=== PATIENT | female | born 1990 | race Caucasian/White ===

== ENCOUNTER 2020-08-20 10:00 | Inpatient (IN) ==
[2020-08-20] MEDS ORDERED: Metoclopramide 10 MG/2 ML VIAL IVP PRN (10:33)
[2020-08-20] MEDS ORDERED: Ondansetron 4 MG/2 ML VIAL IVP PRN ×2 (10:33→12:01)
[2020-08-20] MEDS ORDERED: Famotidine 20 MG/2 ML VIAL IVP PRN (10:33)
[2020-08-20] MEDS ORDERED: *HR* FentaNYL (PF) 100 MCG/2 ML VIAL IVP PRN (10:33)
[2020-08-20] MEDS ORDERED: Azithromycin 500 MG in 0.9 % Sodium Chloride 250 ML IVPB PRN (10:33)
[2020-08-20] MEDS ORDERED: Naloxone 0.4 MG/ML INJ IVP PRN (10:33)
[2020-08-20] MEDS ORDERED: Oxytocin 20 units/ LR 1000 mL 20 UNIT/1,000 ML BAG IVC SCH ×2 (10:45→21:41)
[2020-08-20 11:04] LABS: Basophils % 0.3 %; Eosinophils # 0.1 K/mcL (0.0-0.6); Eosinophils % 1.1 %; Hematocrit 37.7 % (35.3-44.9); Hemoglobin 12.2 g/dL (11.5-15.4); Immature Granulocytes % 1.8 % (0-4); Lymphocytes % 15.3 %; Mean Corpuscular HGB Conc 32.4 g/dL (31.6-35.5); Mean Corpuscular Hemoglobin 31.4 pg (28.0-33.3); Mean Corpuscular Volume 96.9 fL (83.0-100.0); Mean Platelet Volume 11.1 fL (9.4-12.4); Monocytes # 0.7 K/mcL (0.0-1.3); Monocytes % 5.3 %; Neutrophils # 9.8 K/mcL (1.6-8.9); Platelet Count 321 K/mcL (140-400); Red Blood Count 3.89 M/mcL (3.82-4.97); Red Cell Distribution Width 13.2 % (11.5-14.5); Segmented Neutrophils % 76.2 %; White Blood Count 12.9 K/mcL (4.3-11.1)
[2020-08-20] MEDS: Ringers Solution, Lactated 1,000 ML IVC SCH ×2 (11:11→15:41)
[2020-08-20 11:18] LABS: Amphetamine Screen,Urine Negative ng/mL (Cutoff=1000); Barbiturate Screen,Urine Negative ng/mL (Cutoff=200); Benzodiazepines Screen,Urine Negative ng/mL (Cutoff=200); Cannabinoid Screen,Urine Positive ng/mL (Cutoff = 50); Cocaine Screen,Urine Negative ng/mL (Cutoff= 300); Opiate Screen,Urine Negative ng/mL (Cutoff=300); Phencyclidine Screen,Urine Negative ng/mL (Cutoff=25)
[2020-08-20] MEDS ORDERED: EPHEDrine 50 MG/ML VIAL IVP PRN (12:01)
[2020-08-20] MEDS ORDERED: *HR* FentaNYL (PF) 100 MCG/2 ML VIAL EP ONE (12:01)
[2020-08-20] MEDS ORDERED: Ropivacaine/PF 0.2% 20 ML VIAL EP ONE (12:01)
[2020-08-20] MEDS ORDERED: Epidural Premix (fent/bupiv) 110 ML EP SCH (12:15)
[2020-08-20] MEDS ORDERED: Measles/Mumps/Rubella Vacc 0.5 ML VIAL SQ PRN (21:41)
[2020-08-20] MEDS: Ibuprofen 600 MG TABLET PO PRN (22:22)
[2020-08-20] MEDS: Gabapentin 300 MG CAPSULE PO SCH (23:13)
[2020-08-20] MEDS: *HR* Buprenorphine HCl 8 MG TAB.SUBL SL SCH (23:13)
[2020-08-20] MEDS: Nicotine 21 MG PATCH.TD24 TD SCH (23:38)
[2020-08-21] MEDS: ceFAZolin 1,000 MG in Water for inj. (sterile) 10 ML IVP SCH ×3 (00:38→14:55)
[2020-08-21] MEDS: Ibuprofen 600 MG TABLET PO PRN ×3 (06:23→18:23)
[2020-08-21] MEDS: Acetaminophen 325 MG TABLET PO PRN ×3 (06:23→18:23)
[2020-08-21] MEDS: Prenatal Vit/FA 1 EACH TABLET PO SCH (07:54)
[2020-08-21] MEDS: Gabapentin 300 MG CAPSULE PO SCH ×3 (07:54→20:20)
[2020-08-21] MEDS: *HR* Buprenorphine HCl 8 MG TAB.SUBL SL SCH ×3 (07:54→20:20)
[2020-08-21] MEDS ORDERED: Nicotine 21 MG PATCH.TD24 TD SCH (09:00)
[2020-08-21 16:12] LABS: Basophils % 0.2 %; Eosinophils # 0.1 K/mcL (0.0-0.6); Eosinophils % 0.9 %; Hematocrit 30.8 % (35.3-44.9); Immature Granulocytes % 0.5 % (0-4); Lymphocytes # 1.8 K/mcL (0.6-4.6); Lymphocytes % 13.7 %; Mean Corpuscular HGB Conc 33.8 g/dL (31.6-35.5); Mean Corpuscular Hemoglobin 32.6 pg (28.0-33.3); Mean Corpuscular Volume 96.6 fL (83.0-100.0); Mean Platelet Volume 10.8 fL (9.4-12.4); Monocytes # 0.6 K/mcL (0.0-1.3); Monocytes % 4.4 %; Neutrophils # 10.5 K/mcL (1.6-8.9); Platelet Count 251 K/mcL (140-400); Red Blood Count 3.19 M/mcL (3.82-4.97); Red Cell Distribution Width 13.2 % (11.5-14.5); Segmented Neutrophils % 80.3 %
[2020-08-21 16:15] LABS: Hemoglobin 10.4 g/dL (11.5-15.4)
[2020-08-22] MEDS: Nicotine 21 MG PATCH.TD24 TD SCH (02:51)
[2020-08-22] MEDS ORDERED: Lanolin 7 G OINT...G. TP PRN (02:52)
[2020-08-22 07:28] VITALS: BP 110/70
[2020-08-22] MEDS: Ibuprofen 600 MG TABLET PO PRN (07:42)
[2020-08-22] MEDS: Prenatal Vit/FA 1 EACH TABLET PO SCH (07:43)
[2020-08-22] MEDS: Acetaminophen 325 MG TABLET PO PRN (07:43)
[2020-08-22] MEDS: Gabapentin 300 MG CAPSULE PO SCH (09:56)
[2020-08-22] MEDS: *HR* Buprenorphine HCl 8 MG TAB.SUBL SL SCH (09:56)
== END 2020-08-22 11:50 | disposition home or self-care (01) | DRG 560 ==
LOC: 1NENULAB 10:23 → 1NENUOBS 22:14
PROVIDERS: ADMIT Obstetrics & Gynecology; ATTEND Obstetrics & Gynecology